=== PATIENT | female | born 1990 | race Caucasian/White ===

== ENCOUNTER 2016-07-18 22:09 | Emergency (ER) | payer OTHER ==
[~2016-07-18] VITALS: Ht 160 cm; Wt 65.2 kg
[2016-07-18 23:11] LABS: HEMATOCRIT 39.4 % (36.0-46.0); MCHC 34.5 G/DL (30.0-36.0); MEAN PLAT.VOLUME 11.4 uM^3 (9.5-12.4); PLATELET COUNT 320 K/uL (156-360); RED BLOOD COUNT 4.69 M/uL (3.80-5.20)
[2016-07-18 23:19] LABS: CHLORIDE 106 mEq/L (99-109); POTASSIUM 3.9 mEq/L (3.7-5.4); SODIUM 139 mEq/L (136-147)
[2016-07-18 23:21] LABS: GLUCOSE 89 mg/dL (70-99)
[2016-07-18 23:22] LABS: ANION GAP 10 MEQ/L (2-14)
[2016-07-18 23:24] LABS: SERUM ETHYL ALCOHOL < 10 mg/dL
[2016-07-18 23:25] LABS: GFR ESTIMATE (CALCULATED) > 59 mL/min/
[2016-07-18 23:26] LABS: UREA NITROGEN (BUN) 11 mg/dL (9-23)
[2016-07-18 23:28] LABS: SALICYLATE < 5.0 MG/DL (15-30)
[2016-07-18 23:34] LABS: QUANTITATIVE HCG < 4.0 MIU/ML
[2016-07-19 00:10] VITALS: BP 121/69
== END 2016-07-19 00:19 | disposition home or self-care (01) ==
LOC: EDBD 22:09 → EME 22:09
PROVIDERS: Emergency Medicine
DX: F32.9 Major depressive disorder, single episode, unspecified (principal)
CPT/HCPCS: 70360; 80048; 81003; 84702; 85027; 90839; 99281; 99285; G0480; Q0169